=== PATIENT | female | born 1975 | race Caucasian/White ===

== ENCOUNTER 2016-08-24 14:11 | Emergency (ER) | payer MEDICAID, OTHER ==
[~2016-08-24] VITALS: Ht 165.1 cm; Wt 66.0 kg
[~2016-08-24 14:11] MED LIST: ALBU8HFA IH; FLUO-191 PO; NALT50TA10 PO; OLAN10TA6 PO
[2016-08-24] MEDS ORDERED: DiphenhydrAMINE HCL 50 MG/ML VIAL IM ONE (14:45)
[2016-08-24] MEDS ORDERED: HALOPERIDOL LACTATE 5 MG/ML VIAL IM ONE (14:45)
[2016-08-24] MEDS ORDERED: LORazepam 2 MG/ML VIAL IM ONE (14:45)
[2016-08-24] MEDS ORDERED: LITH150C PO (15:36)
[2016-08-24 16:17] LABS: ANION GAP 6 mmol/L (8-16); CALCIUM, TOTAL 8.5 mg/dL (8.8-10.5); CARBON DIOXIDE 28 mmol/L (22-29); CHLORIDE 102 mmol/L (98-107); CREATININE 0.73 mg/dL (0.60-1.30); GLOMERULAR FILTR. RATE CALC > 60 mL/min (>60); POTASSIUM 3.4 mmol/L (3.5-5.1); SODIUM SERUM 136 mmol/L (136-145); UREA NITROGEN, BLOOD 13 mg/dL (7-18)
[2016-08-24 16:19] LABS: BASOPHILS % (AUTO) 0.6 % (0.0-2.0); EOSINOPHILS % (AUTO) 1.4 % (1.0-6.0); HEMATOCRIT 36.3 % (36-46); LYMPHOCYTES # (AUTO) 1.4 K/uL (1.0-4.8); LYMPHOCYTES % (AUTO) 20.7 % (22.0-44.0); MEAN CORPUSCULAR HEMOGLOBIN 30.7 pg (26.0-34.0); MEAN CORPUSCULAR HGB CONC 33.2 G/dL (31.0-37.0); MEAN CORPUSCULAR VOLUME 93 fL (80-100); MONOCYTES # (AUTO) 0.6 K/uL (0.1-1.0); MONOCYTES % (AUTO) 8.6 % (2.0-9.0); NEUTROPHILS # (AUTO) 4.8 K/uL (1.8-7.7); NEUTROPHILS % (AUTO) 68.7 % (40.0-70.0); PLATELET COUNT (AUTO) 269 K/uL (150-450); RED BLOOD CELL COUNT(AUTO) 3.92 MIL/uL (4.00-5.20); RED CELL DISTRIBUTION WIDTH 13.8 % (11.5-14.5)
[2016-08-24 16:24] LABS: ALANINE AMINOTRANSFERASE 14 U/L (12-78); ALBUMIN 3.3 g/dL (3.4-5.0); ASPARTATE AMINOTRANSFERASE 22 U/L (15-37); BILIRUBIN,TOTAL 0.4 mg/dL (0.1-1.0)
[2016-08-24] MEDS ORDERED: LITH300C3 PO (17:57)
[2016-08-24] MEDS ORDERED: POTASSIUM CHLORIDE 10% 40 MEQ/30 ML LIQUID UDCUP PO ONE (18:00)
[2016-08-24 20:22] VITALS: BP 124/76
[2016-12-14] MEDS ORDERED: NALT50 PO (16:20)
[2016-12-14] MEDS ORDERED: OLAN10TA22 PO (16:20)
[2016-12-14] MEDS ORDERED: FLUO-191 PO (16:20)
== END 2016-08-24 20:23 | disposition home or self-care (01) ==
LOC: EMS 14:13
DX: Z00.8 Encounter for other general examination (principal); F15.90 Other stimulant use, unspecified, uncomplicated; J45.909 Unspecified asthma, uncomplicated; F32.9 Major depressive disorder, single episode, unspecified; Z87.891 Personal history of nicotine dependence
CPT/HCPCS: 36415; 80053; 84703; 85025; 96372; 99284; G0480; J1200; J1630; J2060